=== PATIENT | male | born 1985 | race Caucasian/White ===

== ENCOUNTER 2018-07-09 20:14 | Emergency (ER) | payer OTHER ==
[~2018-07-09] VITALS: Ht 180.3 cm; Wt 63.5 kg
[2018-07-09 20:22] VITALS: Ht 180.3 cm; Wt 63.5 kg
[2018-07-09 20:35] LABS: BASOPHIL % 0.8 % (0-2); PLATELET COUNT 347 x10^3mcL (130-400); RED CELL DISTRIBUTION WIDTH 12.2 % (11.5-14.5)
[2018-07-09 20:42] LABS: CALCIUM 9.1 mg/dL (8.5-10.1); CHLORIDE SERUM 100 mmol/L (98-107); CREATININE SERUM 1.2 mg/dL (0.7-1.3); GFR1 > 60 mL/min; GLUCOSE SERUM 233 mg/dL (74-106); SODIUM SERUM 138 mmol/L (136-145)
[2018-07-09 20:45] LABS: PHOSPHOROUS 3.5 mg/dL (2.5-4.9)
[2018-07-09 21:43] VITALS: BP 137/78
== END 2018-07-09 21:43 | disposition home or self-care (01) ==
LOC: ED 20:14
PROVIDERS: Emergency Medicine
DX: E11.649 Type 2 diabetes mellitus with hypoglycemia without coma (principal)
CPT/HCPCS: 36415; 82962; Q0092